=== PATIENT | female | born 1975 | race Caucasian/White ===

== ENCOUNTER → 2016-07-02 | Outpatient (CLI) | payer OTHER ==
[~2016-07-02] MED LIST: DIPH-437 PO; EFF75 PO; GABA800T PO; LORA-741 PO; LTHSR/300 PO; RANI300T2 PO; VTMD PO
[2016-07-02 17:50] LABS: URINE APPEARANCE CLEAR (CLEAR); URINE BILIRUBIN NEG (NEG); URINE COLOR DK YELLOW; URINE EPITHELIAL CELL AUTO >30 /lpf (0-5); URINE NITRITE NEG (NEG); URINE PH 5.5 (4.5-7.5); URINE SPECIFIC GRAVITY 1.031 (1.000-1.030); UROBILINOGEN NEG (NEG)
[2016-07-02 17:55] LABS: MANUAL MICROSCOPIC REQUIRED? NO; REVIEW REQ? NO
[2016-07-02 17:56] LABS: PROTHROMBIN TIME (PATIENT) 10.2 SECONDS (9.0-12.0)
[2016-07-02 17:57] LABS: BLOOD UREA NITROGEN 14 mg/dl (7-18); BUN/CREATININE RATIO 16.5 (10-20); CALCIUM 9.2 mg/dl (8.5-10.1); CARBON DIOXIDE 28 mmol/L (21-32); CHLORIDE 107 mmol/L (98-107); CREATININE 0.85 mg/dl (0.60-1.20); GLUCOSE 98 mg/dl (70-99); POTASSIUM 3.6 mmol/L (3.5-5.1); SODIUM 139 mmol/L (136-145)
[2016-07-02 18:06] LABS: HEMATOCRIT 41.5 % (37-47); MEAN CELL VOLUME 98.8 fL (80-100); MEAN CORPUSCULAR HEMOGLOBIN 32.1 pg (25-34); MEAN CORPUSCULAR HGB CONC 32.5 g/dl (32-36); MEAN PLATELET VOLUME 9.9 fL (7.4-10.4); PLATELET COUNT 275 K/uL (130-400); WHITE BLOOD COUNT 12.72 K/uL (4.8-10.8)
--- NOTE | 2016-08-18 08:54 | CODING QUERY MEDICAL NECESSITY ---
SUPPORTING DIAGNOSIS NEEDED Dr. Yi, A supporting diagnosis is required for the test/procedure performed on this patient in order for us to be reimbursed by the patient's insurance. Please provide a supporting diagnosis for the following test/procedure listed below next to the test name along with your signature. *If there is no additional diagnosis for this patient that would support the following test/procedure please document that below next to the test/procedure. Test(s)/Procedure(s) that require a supporting diagnosis: * ([id number]) VITAMIN D ASSAY DIAGNOSIS: DATE OF SERVICE: 07/02/16 Provider Signature: Date: Thank you Juan Rosado [facility] Information Management Once completed, please kindly fax back to [phone] For questions please call [phone]
== END | disposition home or self-care (01) ==
LOC: C.LABMFLN 14:16 → MERGE 14:37
PROVIDERS: ATTEND Family Medicine
DX: F31.9 Bipolar disorder, unspecified (principal); F11.20 Opioid dependence, uncomplicated; Z98.1 Arthrodesis status; E55.9 Vitamin D deficiency, unspecified

== ENCOUNTER → 2017-11-07 | Outpatient (CLI) | payer OTHER ==
[~2017-11-07] MED LIST changes: +HYDR-4383 PO; +LITH600C PO; +SERT100T PO; +TRAZ50TA35 PO
[2017-11-07 14:03] LABS: BASO % 0.2 %; BASO ABS # 0.03 K/uL (0-0.2); EOS % 1.2 %; EOS ABS # 0.15 K/uL (0-0.5); HEMATOCRIT 43.5 % (37-47); HEMOGLOBIN 14.8 g/dL (12.0-16.0); IG# 0.03 K/uL (0.00-0.02); LYMPH % 25.8 %; LYMPH ABS # 3.35 K/uL (1.2-3.4); MEAN CELL VOLUME 98.6 fL (80-100); MEAN CORPUSCULAR HEMOGLOBIN 33.6 pg (25-34); MONO % 3.9 %; MONO ABS # 0.51 K/uL (0.11-0.59); NEUT % 68.7 %; NEUT ABS # 8.89 K/uL (1.4-6.5); PLATELET COUNT 289 K/uL (130-400); RED CELL DISTRIBUTION WIDTH CV 13.2 % (11.5-14.5); WHITE BLOOD COUNT 12.96 K/uL (4.8-10.8)
== END | disposition home or self-care (01) ==
LOC: C.LAB 13:32
PROVIDERS: ATTEND Orthopaedic Surgery Orthopaedic Surgery of the Spine
DX: Z01.812 Encounter for preprocedural laboratory examination (principal)

== ENCOUNTER 2017-11-14 09:39 | Inpatient (IN) | payer OTHER ==
[2017-11-10 10:16] VITALS: BMI 29.0
--- NOTE | 2017-11-11 15:50 | HISTORY & PHYSICAL EXAMINATION ---
DATE OF ADMISSION: 11/14/2017 Preoperative surgery is coming up on 14 of November to be a PLIF procedure lumbar spine. HISTORY OF PRESENT ILLNESS: Sarah has incapacitating back pain ongoing for several years. She had remote surgery which gave her minimal help, worsened over the course of time with increasing back and lower extremity difficulty. She has a documented spondylolisthesis of the spine and where they were taking her for revision surgery of the lumbar spine. PAST MEDICAL HISTORY: Negative for hypertension, COPD, diabetes, carcinoma. PAST SURGICAL HISTORY: Spinal fusion, , bladder sling, carpal tunnel. ALLERGIES: Negative. MEDICATIONS: Gabapentin, Zoloft, lithium. FAMILY HISTORY: Diabetes. SOCIAL HISTORY: She is . Moderate tobacco, no alcohol. REVIEW OF SYSTEMS: Denies any fevers, sweats, chills, malaise. Denies any chest pain, shortness of breath. Denies nausea, vomiting, urgency, frequency. Admits to depression. OBJECTIVE: VITAL SIGNS: She is 5 feet 1 inch, weight 155, blood pressure 130/80, pulse 80. Afebrile. GENERAL: She is in distress, but she is appropriately dressed. HEENT: Normal. Pupils reactive to light and accommodation. No unusual markings. CARDIAC: Normal S1, S2; no S3. LUNGS: Clear. No rales, rhonchi or wheezing. ABDOMEN: Soft, nontender, bowel sounds present. NEUROLOGIC: She has slight loss of sensation of the lower extremities. SKIN: Intact, well healed wound. EXTREMITIES: She has profound pain with percussion, decreased range of motion. ASSESSMENT: Spondylolisthesis of the spine. Worsening neurological issues. PLAN: It was a PLIF procedure lumbar spine L4-L5. We went over the procedure with her. She asked intelligent questions and were squared away, emotionally and physically for surgery.
[2017-11-14] VITALS (9 sets, daily range): BP systolic 95–123; BP diastolic 61–85; PULSE 73–96; TEMP 36.5–36.8; O2SAT 84–99; Ht 154.9 cm; Wt 69.5 kg
[~2017-11-14] VITALS: Ht 154.9 cm; Wt 69.5 kg
[~2017-11-14 09:39] MED LIST changes: +CEFAZOLIN 2000MG IV PUSH 15 ML IV SCH; -DIPH-437 PO; -EFF75 PO; -HYDR-4383 PO; +LACTATED RINGER'S 1000ML 1,000 ML IV SCH; -LORA-741 PO; -LTHSR/300 PO; +SODIUM CHLORIDE 0.9% 1000ML 1,000 ML IV SCH; -VTMD PO
[2017-11-14] MEDS ORDERED: VANCOMYCIN HCL 1000MG/20ML VIAL ONE (12:10)
[2017-11-14] MEDS ORDERED: BACITRACIN 50000 UNIT VIAL ONE (12:10)
[2017-11-14] MEDS ORDERED: THROMBIN FOR SOLN 20000 UNIT KIT ONE (12:10)
[2017-11-14] MEDS ORDERED: GELATIN SPONGE SZ 100 ONE ×2 (12:10→14:06)
[2017-11-14] MEDS ORDERED: BUPIVACAINE/EPINEPHRINE 0.5% MPF 1:200,000 30 ML VIAL ONE (12:11)
[2017-11-14] MEDS ORDERED: MIDAZOLAM HCL 1 MG/ML 2ML VIAL ONE (12:18)
[2017-11-14] MEDS ORDERED: CISATRACURIUM BESYLATE IV SOLN 2 MG/ML 10 ML VIAL ONE (12:18)
[2017-11-14] MEDS ORDERED: FENTANYL CITRATE INJ 50 MCG/1 ML 2 ML VIAL ONE ×4 (12:18→15:38)
[2017-11-14] MEDS ORDERED: LIDOCAINE HCL 2% 2 ML VIAL (20MG/ML) ONE (12:18)
[2017-11-14] MEDS ORDERED: NEOSTIGMINE METHYLSULFATE 5 MG/5 ML SYR ONE (12:18)
[2017-11-14] MEDS ORDERED: PROPOFOL IV EMULSION 10 MG/ML 20 ML VIAL ONE (12:18)
[2017-11-14] MEDS ORDERED: GLYCOPYRROLATE INJ 0.2 MG/ML VIAL ONE (12:18)
--- NOTE | 2017-11-14 12:21 | History & Physical Bridge Note ---
H&P Re-Evaluation Bridge Note: I have examined the patient, reviewed the History & Physical and in the interval since the performance of the History & Physical I have noted the following changes of clinical significance: No changes noted
[2017-11-14] MEDS ORDERED: DEXAMETHASONE SOD INJ 4 MG/ML VIAL ONE (12:23)
[2017-11-14] MEDS ORDERED: ONDANSETRON INJ 2 MG/ML 2 ML VIAL ONE (12:23)
[2017-11-14] MEDS ORDERED: EpHEDrine SULFATE INJ 50 MG/ML AMP ONE (14:24)
[2017-11-14] MEDS ORDERED: SODIUM CHLORIDE 0.9% INJ 10 ML VIAL ONE (14:24)
[2017-11-14] MEDS ORDERED: PROMETHAZINE HCL INJ 12.5 MG in SODIUM CHLORIDE 0.9% 50ML 50 ML IV PRN ×2 (14:30→15:45)
[2017-11-14] MEDS ORDERED: ATROPINE SULFATE 0.1 MG/ML 5ML SYR IV PRN (14:30)
[2017-11-14] MEDS ORDERED: ONDANSETRON INJ 2 MG/ML 2 ML VIAL IV PRN ×2 (14:30→15:45)
[2017-11-14] MEDS ORDERED: NALOXONE HCL 0.4 MG/1 ML VIAL/CARP IV PRN ×2 (14:30→15:45)
[2017-11-14] MEDS ORDERED: FLUMAZENIL 0.1 MG/1 ML 10 ML VIAL IV PRN (14:30)
[2017-11-14] MEDS ORDERED: EpHEDrine SULFATE INJ 50 MG/ML AMP IV PRN (14:30)
[2017-11-14] MEDS ORDERED: LABETALOL HCL IV 5 MG/ML 20ML IV PRN (14:30)
--- NOTE | 2017-11-14 15:10 | DIAGNOSTIC IMAGING REPORT ---
SPINE ONE VIEW, ANY LEVEL CLINICAL HISTORY: L4-5 INTERBODY/FUSION COMPARISON STUDY: Lumbar spine radiographs November 04, 2017. Fluoroscopy time: 9 seconds. FINDINGS: Lateral fluoroscopic image demonstrates a L4-L5 discectomy with interbody spacer present. There are bilateral pedicle screws at the L4 and L5 levels. IMPRESSION: Fluoroscopic images demonstrating a L4-L5 discectomy and bilateral pedicle screw fusion. Electronically signed by: Narendra Dickey M.D. 11/14/2017 3:08 PM Dictated Date/Time: 11/14/2017 3:06 PM
[2017-11-14] MEDS ORDERED: SODIUM CHLORIDE 0.9% 1000ML 1,000 ML IV SCH ×2 (15:37→18:00)
--- NOTE | 2017-11-14 15:38 | [facility] Post Operative Brief Note ---
Immediate Operative Summary Operative Date Nov 14, 2017. Pre-Operative Diagnosis Spondylolisthesis of the spine; worsening neurological issues Post-Operative Diagnosis Spondylolisthesis of the spine; worsening neurological issues Procedure(s) Performed Revision Posterior Lumber Interbody Fusion, L4-[address] Araceli Jurado Stroke Belt Sander Operator Surgeon(s) Pily Ansari PA-C Estimated Blood Loss 250 ml Findings Consistent with Post-Op Diagnosis Specimens a. Removed Hardware, Spine Anesthesia Type General
[2017-11-14] MEDS ORDERED: METOCLOPRAMIDE HCL INJ 5 MG/ML 2 ML VIAL IV PRN (15:45)
[2017-11-14] MEDS ORDERED: ACETAMINOPHEN 325 MG TAB PO PRN (15:45)
[2017-11-14] MEDS ORDERED: LORAZEPAM 1 MG TAB PO PRN (15:45)
[2017-11-14] MEDS ORDERED: MAGNESIUM HYDROXIDE SUSP 30 ML UDC PO PRN (15:45)
[2017-11-14] MEDS ORDERED: LORAZEPAM INJ 1 MG in SYRINGE 0 ML IV PRN (15:45)
[2017-11-14] MEDS ORDERED: HYDROmorphone HCL 0.5MG/ML 50 ML CASSETTE ONE (15:47)
[2017-11-14] MEDS: HYDROmorphone INJ 1 MG/ML SYR IV PRN ×7 (15:51→16:38)
[2017-11-14 16:19] LABS: HEMATOCRIT 38.1 % (37-47); HEMOGLOBIN 12.2 g/dL (12.0-16.0)
--- NOTE | 2017-11-14 16:40 | Anesthesiology Progress Note ---
Anesthesia Post Op Note Date & Time Nov 14, 2017 at 16:40 Vital Signs Pain Intensity: 5.0 Vital Signs Past 12 Hours Date Time Temp Pulse Resp B/P (MAP) Pulse Ox O2 Delivery O2 Flow Rate FiO2 11/14/17 16:25 83 12 109/59 100 Nasal Cannula 2 11/14/17 16:15 85 12 103/64 100 Nasal Cannula 2 11/14/17 16:05 79 10 105/59 99 Oxymask 10 11/14/17 15:55 81 10 105/65 99 Oxymask 10 11/14/17 15:45 36.3 75 16 113/77 100 Oxymask 10 11/14/17 10:08 36.8 73 20 107/75 97 Room Air Notes Mental Status: alert / awake / arousable, participated in evaluation Pt Amnestic to Procedure: Yes Nausea / Vomiting: adequately controlled Pain: adequately controlled Airway Patency, RR, SpO2: stable & adequate BP & HR: stable & adequate Hydration State: stable & adequate Anesthetic Complications: no major complications apparent
--- NOTE | 2017-11-14 17:47 | OPERATIVE REPORT ---
DATE OF OPERATION: 11/14/2017 PREOPERATIVE DIAGNOSES: Spondylolisthesis, lumbar spine; failed hardware, lumbar spine; spinal stenosis, lumbar spine. POSTOPERATIVE DIAGNOSES: Spondylolisthesis, lumbar spine; failed hardware, lumbar spine; spinal stenosis, lumbar spine. PROCEDURE: 1. Removal of prior instrumentation from a prior fusion lumbar spine L4-L5, decompression of the neural elements with decompression laminectomy at L4, decompression laminectomy at L5, foraminotomy, partial facetectomy. 2, Complete diskectomy, L4-L5. 3. Pedicle screw instrumentation, L4 and L5, lumbar spine. 4. Posterolateral fusion, lumbar spine. 5. Implantation of InFuse. 6. Posterior lumbar interbody fusion, lumbar spine bilaterally, placed at L4-L5. SURGEON: Bishnu Jurado DO SAS DEVELOPER: Leroy Ansari PA-C COMPLICATIONS: No complications. BLOOD LOSS: 50 mL ANESTHETIC: General. IMPLANTS USED: Jobzella. DESCRIPTION OF PROCEDURE: The patient was taken to the operating room, a general intubated anesthetic provided to the patient, placed prone, scrubbed, prepped and draped sterile. Hagen catheter administered, Ancef administered, and a formal timeout provided. After skin incision and fascial incision, we carefully got back down to the dura. It was apparent to me that it was an incomplete laminectomy from prior surgery. Significant amount of lamina was still residual with infolding of ligamentum flavum giving her spinal stenosis. We carefully and meticulously decompressed all neural elements which will be 4 and 5 bilaterally. We stayed out of the dura, had no dural injuries or lacerations or apparent nerve injury. We then retracted the dura in a medial direction from both left and right sided to prepare the interbody. We did a diskectomy. We did use pituitary alber. We were able to get up to a size 9 interbody device. These interbody devices were packed in the interbody area between L4-L5 to initiate the posterior lumbar interbody fusion. With proper positioning, we were able to safely get pedicle screws into 4 and 5 bilaterally, the 7.5 mm screw up at the 4th vertebrae and 8.5 at the 5th vertebrae. We connected with longitudinal murali. We then used a crosslink as well. We irrigated thoroughly with approximately 500 mL of fluid. We bone grafted out of the transverse process. We used Infuse over the transverse process. We then placed vancomycin deep to the wound, closed the fascia with #1 Vicryl suture, 2-0 on the subcuticular layer, 3-0 nylon skin, sterile dressing applied. The patient returned to PACU stable. No apparent intraoperative complications as already stated. I attest to the content of the Intraoperative Record and any orders documented therein. Any exception s are noted below.
[2017-11-14] MEDS: GABAPENTIN 800 MG TAB PO SCH ×2 (19:36→20:38)
[2017-11-14] MEDS: KETOROLAC TROMETHAMINE 30 MG/ML VIAL IV SCH (19:36)
[2017-11-14] MEDS: DEXAMETHASONE INJ 10 MG in SYRINGE 0 ML IV SCH (20:14)
[2017-11-14] MEDS: CEFAZOLIN IV 1,000 MG in SYRINGE 0 ML IV SCH (20:14)
[2017-11-14] MEDS: LITHIUM CARBONATE 300 MG TAB PO SCH (20:38)
[2017-11-14] MEDS: TRAZODONE HCL 50 MG TAB PO SCH (20:38)
[2017-11-14] MEDS: HYDROmorphone HCL 0.5MG/ML 50 ML CASSETTE IV PRN (23:00)
[2017-11-15] VITALS (8 sets, daily range): BP systolic 95–112; BP diastolic 59–73; PULSE 59–89; TEMP 36.6–36.8; O2SAT 92–99
[2017-11-15] MEDS: KETOROLAC TROMETHAMINE 30 MG/ML VIAL IV SCH ×4 (00:42→17:33)
[2017-11-15] MEDS: CEFAZOLIN IV 1,000 MG in SYRINGE 0 ML IV SCH ×2 (03:57→12:42)
[2017-11-15] MEDS: DEXAMETHASONE INJ 10 MG in SYRINGE 0 ML IV SCH ×3 (03:57→21:14)
[2017-11-15] MEDS ORDERED: BISACODYL 10 MG SUPP PR PRN (06:00)
[2017-11-15] MEDS ORDERED: BISACODYL 5 MG TABEC PO PRN (06:00)
[2017-11-15] MEDS: HYDROmorphone HCL 0.5MG/ML 50 ML CASSETTE IV PRN (07:09)
[2017-11-15] MEDS ORDERED: DC PCA ONE (08:00)
[2017-11-15] MEDS ORDERED: RANITIDINE HCL 150 MG TAB PO PRN (08:00)
[2017-11-15] MEDS ORDERED: OXYCODONE/ACETAMINOPHEN 5-325 TAB PO PRN (08:00)
[2017-11-15] MEDS ORDERED: HYDROmorphone INJ 2 MG/ML SYR/VIAL IV PRN (08:00)
[2017-11-15] MEDS: GABAPENTIN 800 MG TAB PO SCH ×4 (09:03→21:15)
[2017-11-15] MEDS: SERTRALINE HCL 100 MG TAB PO SCH (09:04)
[2017-11-15] MEDS: LITHIUM CARBONATE 300 MG TAB PO SCH ×2 (09:04→21:15)
[2017-11-15] MEDS: POLYETHYLENE (MIRALAX) 17 GM PACK PO SCH (09:05)
[2017-11-15] MEDS: OXYCODONE/ACETAMINOPHEN 5-325 TAB PO PRN ×3 (09:10→21:14)
[2017-11-15] MEDS ORDERED: NURSING VERBAL MED ORDER ONE (09:15)
[2017-11-15] MEDS: HYDROmorphone INJ 1 MG/ML SYR IV PRN ×4 (11:18→22:20)
--- NOTE | 2017-11-15 13:54 | Anesthesiology Progress Note ---
Anesthesia Post Op Note Date & Time Nov 15, 2017 at 13:54 Vital Signs Pain Intensity: 5.0 Vital Signs Past 12 Hours Date Time Temp Pulse Resp B/P (MAP) Pulse Ox O2 Delivery O2 Flow Rate FiO2 11/15/17 11:22 36.6 89 16 112/73 (86) 96 Room Air 11/15/17 07:06 36.7 68 16 96/60 (72) 95 Room Air 11/15/17 03:05 36.6 81 16 107/69 (82) 92 Room Air Notes Mental Status: alert / awake / arousable, participated in evaluation Pt Amnestic to Procedure: Yes Nausea / Vomiting: adequately controlled Pain: adequately controlled Airway Patency, RR, SpO2: stable & adequate BP & HR: stable & adequate Hydration State: stable & adequate Anesthetic Complications: no major complications apparent
[2017-11-15] MEDS: TRAZODONE HCL 50 MG TAB PO SCH (22:19)
[2017-11-16] MEDS: OXYCODONE/ACETAMINOPHEN 5-325 TAB PO PRN ×2 (01:59→07:02)
[2017-11-16] MEDS: HYDROmorphone INJ 1 MG/ML SYR IV PRN ×2 (03:43→08:23)
[2017-11-16] MEDS: DEXAMETHASONE INJ 10 MG in SYRINGE 0 ML IV SCH (03:43)
[2017-11-16 07:15] VITALS: BP 136/81; PULSE 84; TEMP 37; O2SAT 97
[2017-11-16] MEDS ORDERED: HYDR-4383 PO (07:53)
--- NOTE | 2017-11-16 07:55 | Discharge Instructions ---
Discharge Instructions Date of Service Nov 16, 2017. Admission Reason for Admission: Spondylolithiasis Discharge Discharge Diagnosis / Problem: same Discharge Goals Goal(s): Improve function Activity Recommendations Activity Limitations: as noted below Lifting Limitations: no more than 5 pounds Exercise/Sports Limitations: until after follow-up appointment May Resume Sexual Activity: after follow-up appointment Shower/Bathe: keep incision dry home , rest , recover . Current Hospital Diet Patient's current hospital diet: Regular Diet Discharge Diet Recommended Diet: Regular Diet Procedures Procedures Performed: Revision Posterior Lumber Interbody Fusion, L4-5 Pending Studies Studies pending at discharge: no Medical Emergencies . Who to Call and When: Medical Emergencies: If at any time you feel your situation is an emergency, please call 911 immediately. . Non-Emergent Contact Non-Emergency issues call your: Primary Care Provider . "Provider Documentation" section prepared by Bishnu Jurado. .
[2017-11-16] MEDS: POLYETHYLENE (MIRALAX) 17 GM PACK PO SCH (08:30)
[2017-11-16] MEDS: GABAPENTIN 800 MG TAB PO SCH (08:31)
[2017-11-16] MEDS: LITHIUM CARBONATE 300 MG TAB PO SCH (08:31)
[2017-11-16] MEDS: SERTRALINE HCL 100 MG TAB PO SCH (08:31)
[2017-11-16 08:54] VITALS: BP 136/81; PULSE 84; TEMP 37; O2SAT 97
--- NOTE | 2017-11-16 09:59 | DISCHARGE SUMMARY ---
SUBJECTIVE: She is alert, oriented, minimal complaints. Out of bed to chair. Incision clean, dry. Afebrile. ASSESSMENT: Status post major reconstructive spinal surgery. PLAN: Go home today with basically utmost care. She can be out of bed to a chair, short little walks. Keep her wound clean. Absolutely no lifting, no bending. Wear her brace and we have been adamant about this . I feel she will be less than compliant and I emphasized the compliance issue and this could evolve into a serious situation . She will be discharged home with prescriptions on her chart and follow up in 10 days.
== END 2017-11-16 09:30 | disposition home or self-care (01) | DRG 454 ==
LOC: C.ACU 09:39 → C.3E 12:00 → ENRESERV 16:03
PROVIDERS: ADMIT Orthopaedic Surgery Orthopaedic Surgery of the Spine; ATTEND Orthopaedic Surgery Orthopaedic Surgery of the Spine
PROC: 0SP004Z Removal of Internal Fixation Device from Lumbar Vertebral Joint, Open Approach (ICD-10-PCS; principal; 2017-11-14 12:00)
PROC: 0SG00AJ Fusion of Lumbar Vertebral Joint with Interbody Fusion Device, Posterior Approach, Anterior Column, Open Approach (ICD-10-PCS; principal; 2017-11-14 12:00)
PROC: 0ST20ZZ Resection of Lumbar Vertebral Disc, Open Approach (ICD-10-PCS; principal; 2017-11-14 12:00)
PROC: 0SG0071 Fusion of Lumbar Vertebral Joint with Autologous Tissue Substitute, Posterior Approach, Posterior Column, Open Approach (ICD-10-PCS; principal; 2017-11-14 12:00)
DX: M43.16 Spondylolisthesis, lumbar region (principal); T84.296A Other mechanical complication of internal fixation device of vertebrae, initial encounter; Z98.1 Arthrodesis status; Z83.3 Family history of diabetes mellitus; Y83.2 Surgical operation with anastomosis, bypass or graft as the cause of abnormal reaction of the patient, or of later complication, without mention of misadventure at the time of the procedure; Y92.009 Unspecified place in unspecified non-institutional (private) residence as the place of occurrence of the external cause